=== PATIENT | male | born 1960 | race Caucasian/White ===

== ENCOUNTER 2024-04-22 13:36 | Outpatient (CLI) | payer BC, SELFPAY ==
--- NOTE | 2024-04-22 13:43 | MR_ITS ---
WS: [id number] MRI CERVICAL SPINE NONCONTRAST TECHNIQUE: Sagittal T1, T2 and STIR imaging. Axial T2, gradient, and fiesta imaging. CLINICAL INFORMATION: CERVICAL RADICULOPATHY COMPARISON: None. FINDINGS: Straightening of the normal cervical lordosis. Disc osteophyte complexes worse at C5-C6 and C6-7 with mild central canal stenosis. Cord signal is normal. Small disc protrusions in the upper thoracic spi ne at T1-T3. C2-C3: Mild facet arthropathy. C3-C4: Moderate facet arthropathy. C4-C5: Disc osteophyte complex with endplate ridging. Moderate LEFT and mild RIGHT bony foraminal dianne rowing. Moderate facet arthropathy. C5-C6: Disc osteophyte complex with uncovertebral joint hypertrophy. Severe LEFT and moderate RIGHT b joslyn foraminal narrowing. Moderate facet arthropathy. Mild central canal stenosis. C6-C7: Disc osteophyte complex with mild central canal stenosis. Uncovertebral joint hypertrophy. Mod erate to severe bilateral bony foraminal narrowing. C7-T1: Moderate LEFT bony foraminal narrowing. Spinal canal and RIGHT foramen are patent. Visualized brain stem structures: Normal. Prevertebral soft tissues: Normal. MR/MR cervical spin wo con* [id number] IMPRESSION: 1. Straightening of the normal cervical lordosis. 2. Moderate to severe bony foraminal narrowing worse at LEFT C4-5, bilateral C 5-6 worse on the LEFT, bilateral C6-7, and moderate LEFT C7-T1. 3. Disc osteophyte complexes worse at C5-C6 and C6-C7 with mild central canal stenosis.
== END 2024-04-22 13:37 | disposition home or self-care (01) ==
PROVIDERS: PCP Family Medicine; Visit Provider Nurse Practitioner Adult Health
DX: M54.12 Radiculopathy, cervical region (principal); M99.61 Osseous and subluxation stenosis of intervertebral foramina of cervical region; M25.78 Osteophyte, vertebrae; M50.321 Other cervical disc degeneration at C4-C5 level; M50.322 Other cervical disc degeneration at C5-C6 level; M50.323 Other cervical disc degeneration at C6-C7 level
CPT/HCPCS: 72141

== ENCOUNTER 2024-11-25 13:15 | Outpatient (CLI) | payer BC, SELFPAY ==
--- NOTE | 2024-11-25 13:18 | MR_ITS ---
WS: [id number] MRI THORACIC SPINE noncontrast HISTORY: S/P CERVICAL SPINAL FUSION COMPARISON: None available. TECHNIQUE: Multiplanar sequences are performed in sagittal and axial planes. Prior cervical fusion extends anteriorly from C5-T1. Mild anterior wedging of T1. No marrow edema within the thoracic spine. There is a small Schmorl's nodes defects at several levels. Signal within the cord is normal. Mass posterior and external to the thoracic cord at T5-6 level is identified extending over a length of 3.0 cm. Elliptical shaped mass with contact on the posterior thoracic cord but no edema. Transverse diameter of 1.2 cm extends slightly greater to the LEFT towards the foramen. On the axial imaging there is mass effect and anterior displacement of the thoracic cord. No remodeling of the adjacent osseous structures. No widening of the neural foramen. T1-2: Normal. T2-3: Normal. T3-4: Normal. T4-5: Normal. T5-6: Mild foraminal narrowing and central canal stenosis secondary to the intradural, extra medullary tumor. T6-7: Normal. T7-8: Shallow LEFT paracentral disc protrusion. T8-9: Small foraminal osteophytes. T9-10: Bilateral facet arthritis. T10-11: Bilateral facet arthritis and LEFT foraminal narrowing. T11-12: Normal. There is mild ectasia of the descending thoracic aorta. These images are not obtained specifically to evaluate the aorta but the ascending aorta appears to be slightly dilated and ectatic. Pulmonary artery size appears normal. No effusions. MR/MR thoracic spin wo con* [id number] IMPRESSION: 1. 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 So ft tissue mass is centered at T5-6 extending over a length of 3.0 cm and transv ersely by 1.2 cm. Suspect schwannoma, meningioma or metastatic disease. Recomme nd follow-up thoracic spine MRI with contrast at this time. 2. No cord edema or high-grade stenosis. There is mild central and foraminal s tenosis at T5-6.
== END 2024-11-25 13:16 | disposition home or self-care (01) ==
LOC: RAD 13:15
PROVIDERS: PCP Family Medicine; Visit Provider Orthopaedic Surgery Orthopaedic Surgery of the Spine
DX: Z98.1 Arthrodesis status (principal); D43.4 Neoplasm of uncertain behavior of spinal cord; M79.89 Other specified soft tissue disorders; M48.04 Spinal stenosis, thoracic region; M48.54XA Collapsed vertebra, not elsewhere classified, thoracic region, initial encounter for fracture; R93.7 Abnormal findings on diagnostic imaging of other parts of musculoskeletal system; M25.78 Osteophyte, vertebrae; M47.894 Other spondylosis, thoracic region; I77.810 Thoracic aortic ectasia
CPT/HCPCS: 72146

== ENCOUNTER 2024-12-04 14:11 | Outpatient (CLI) | payer BC, SELFPAY ==
--- NOTE | 2024-12-04 14:20 | MRR_ITS ---
PROCEDURE INFORMATION: Exam: MR Thoracic Spine Without and With Contrast Exam date and time: 12/04/2024 3:16 PM Age: 64 years old Clinical indication: Mass, lump or swelling; Prior surgery; Surgery date: 6+ months; Surgery type: Colon, c-fusion, lumbar discectomy, hernia, uro lift; Mid back pain across back. Prior surg cervical fusion c5 to t1. Surg. 05/06/24. Pain in mid back was there prior to surg and still consistent/ mri t-spine wo done on 11-25-24; Mass was seen at t5-t6; Additional info: Thoracic spine pain/soft tissue mass TECHNIQUE: Imaging protocol: Magnetic resonance imaging of the thoracic spine without and with contrast. Contrast material: MULTIHANCE; Contrast volume: 20 ml; Contrast route: INTRAVENOUS (IV); COMPARISON: MR thoracic spin wo con* [id number] 11/25/2024 1:34 PM FINDINGS: Bones/joints: There is an oval extramedullary, intradural mass involving the thoracic spinal canal posteriorly. The mass lies posterior to the thoracic cord from the T5 level to the T6 level and measures 3 cm in length and 1.2 cm in diameter. The mass causes very mild cord compression but there is no evidence of cord edema. The mass demonstrates very high-signal on T2 images and enhances avidly with contrast. Spinal cord: See Bones/joints finding. T1-T2: No significant disc bulge or herniation. No severe spinal canal stenosis. No significant neural foraminal narrowing. T2-T3: No significant disc bulge or herniation. No severe spinal canal stenosis. No significant neural foraminal narrowing. T3-T4: No significant disc bulge or herniation. No severe spinal canal stenosis. No significant neural foraminal narrowing. T4-T5: No significant disc bulge or herniation. No severe spinal canal stenosis. No significant neural foraminal narrowing. T5-T6: See above. T6-T7: No significant disc bulge or herniation. No severe spinal canal stenosis. No significant neural foraminal narrowing. T7-T8: No significant disc bulge or herniation. No severe spinal canal stenosis. No significant neural foraminal narrowing. T8-T9: No significant disc bulge or herniation. No severe spinal canal stenosis. No significant neural foraminal narrowing. T9-T10: No significant disc bulge or herniation. No severe spinal canal stenosis. No significant neural foraminal narrowing. T10-T11: No significant disc bulge or herniation. No severe spinal canal stenosis. No significant neural foraminal narrowing. T11-T12: No significant disc bulge or herniation. No severe spinal canal stenosis. No significant neural foraminal narrowing. T12-L1: No significant disc bulge or herniation. No severe spinal canal stenosis. No significant neural foraminal narrowing. Soft tissues: Unremarkable. MR/MR thoracic spine wo/w [id number] IMPRESSION: Soft tissue mass involving the spinal canal at the T5-6 level as detailed above. Primary considerations would include schwannoma, atypical meningioma. A remote consideration would include a metastatic lesion.
[2024-12-04] MEDS: gadobenate dimeglumine 20 mL vial IV (15:54)
== END 2024-12-04 14:12 | disposition home or self-care (01) ==
PROVIDERS: PCP Family Medicine; Visit Provider Orthopaedic Surgery Orthopaedic Surgery of the Spine
DX: M54.6 Pain in thoracic spine (principal); R22.2 Localized swelling, mass and lump, trunk
CPT/HCPCS: 72157

== ENCOUNTER 2025-01-06 05:00 | Outpatient (RCR) | payer BC, OTHER, SELFPAY | END 2025-02-05 23:59 | disposition home or self-care (01) | LOC: MPT 05:00 | PROVIDERS: PCP Family Medicine; Visit Provider Orthopaedic Surgery Orthopaedic Surgery of the Spine | DX: Z98.1 Arthrodesis status (principal) | CPT/HCPCS: 97110; 97140; 97162 ==

== ENCOUNTER 2025-02-06 05:00 | Outpatient (RCR) | payer BC, OTHER, SELFPAY | END 2025-03-08 23:59 | disposition home or self-care (01) | LOC: MPT 05:00 | PROVIDERS: PCP Family Medicine; Visit Provider Orthopaedic Surgery Orthopaedic Surgery of the Spine | DX: Z98.1 Arthrodesis status (principal) | CPT/HCPCS: 97110; 97140; 97530 ==

== ENCOUNTER 2025-03-09 05:00 | Outpatient (RCR) | payer OTHER, SELFPAY | END 2025-04-07 23:59 | disposition home or self-care (01) | LOC: MPT 05:00 | PROVIDERS: PCP Family Medicine; Visit Provider Orthopaedic Surgery Orthopaedic Surgery of the Spine | DX: Z98.1 Arthrodesis status (principal) | CPT/HCPCS: 97110; 97140 ==

== ENCOUNTER 2025-03-13 13:12 | Outpatient (CLI) | payer BC, OTHER, SELFPAY ==
--- NOTE | 2025-03-13 13:22 | MRR_ITS ---
PROCEDURE INFORMATION: Exam: MR Thoracic Spine Without and With Contrast Exam date and time: 03/13/2025 2:38 PM Age: 64 years old Clinical indication: Pain in thoracic spine; Prior surgery; Surgery date: 6+ months; Surgery type: Prior surg cervical fusion c5 to t1. Surg. 05/06/24, lumbar discectomy, hernia, uro lift; Prior surg cervical fusion c5 to t1. Surg. 05/06/24. T2 to t7 fusion hematoma- surgically removed. Follow up on hematoma today; Additional info: Evaluate for recurrence of hemagioma/sp spinal fusion TECHNIQUE: Imaging protocol: Magnetic resonance imaging of the thoracic spine without and with contrast. Contrast material: MULTIHANCE; Contrast volume: 20 ml; Contrast route: INTRAVENOUS (IV); COMPARISON: MR thoracic spine wo/w [id number] 12/04/2024 3:16 PM FINDINGS: Bones/joints: Normal alignment and curvature. Status post posterior fusion T3 through T6 with screws and rods. Dorsal decompression noted at the same level. Previously noted mass in the spinal canal at T5-6 has been resected. No large disc bulges or herniations. No severe spinal stenosis or foraminal narrowing. No extradural fluid collections. Spinal cord: Normal spinal cord. T1-T2: No significant disc bulge or herniation. No severe spinal canal stenosis. No significant neural foraminal narrowing. T2-T3: No significant disc bulge or herniation. No severe spinal canal stenosis. No significant neural foraminal narrowing. T3-T4: No significant disc bulge or herniation. No severe spinal canal stenosis. No significant neural foraminal narrowing. T4-T5: No significant disc bulge or herniation. No severe spinal canal stenosis. No significant neural foraminal narrowing. T5-T6: See Bones/joints finding. T6-T7: No significant disc bulge or herniation. No severe spinal canal stenosis. No significant neural foraminal narrowing. T7-T8: No significant disc bulge or herniation. No severe spinal canal stenosis. No significant neural foraminal narrowing. T8-T9: No significant disc bulge or herniation. No severe spinal canal stenosis. No significant neural foraminal narrowing. T9-T10: No significant disc bulge or herniation. No severe spinal canal stenosis. No significant neural foraminal narrowing. T10-T11: No significant disc bulge or herniation. No severe spinal canal stenosis. No significant neural foraminal narrowing. T11-T12: No significant disc bulge or herniation. No severe spinal canal stenosis. No significant neural foraminal narrowing. T12-L1: No significant disc bulge or herniation. No severe spinal canal stenosis. No significant neural foraminal narrowing. Soft tissues: Unremarkable. MR/MR thoracic spine wo/w [id number] IMPRESSION: 1. Status post posterior fusion and dorsal decompression plus tumor removal in the upper thoracic spine. 2. No acute findings.
[2025-03-13] MEDS: gadobenate dimeglumine 20 mL vial IV (15:04)
== END 2025-03-13 13:13 | disposition home or self-care (01) ==
LOC: RAD 13:14
PROVIDERS: PCP Family Medicine; Visit Provider Orthopaedic Surgery Orthopaedic Surgery of the Spine
DX: Z98.1 Arthrodesis status (principal); D18.09 Hemangioma of other sites; M48.54XA Collapsed vertebra, not elsewhere classified, thoracic region, initial encounter for fracture
CPT/HCPCS: 72157

== ENCOUNTER 2025-04-30 07:51 | Outpatient (RCR) | payer OTHER, SELFPAY | END 2025-04-30 10:47 | disposition home or self-care (01) | LOC: MPT 07:51 | PROVIDERS: PCP Family Medicine; Visit Provider Orthopaedic Surgery Orthopaedic Surgery of the Spine | DX: Z98.1 Arthrodesis status (principal) | CPT/HCPCS: 97110; 97140; 97530 ==

== ENCOUNTER 2025-07-03 14:28 | Outpatient (CLI) | payer SELFPAY ==
--- NOTE | 2025-07-03 14:34 | MR_ITS ---
WS: [email or web address] MRI THORACIC SPINE WITHOUT CONTRAST TECHNIQUE: Sagittal T1, T2 and STIR imaging. Axial T2 imaging. Noncontrast imaging obtained. CLINICAL INFORMATION: THORACIC STENOSIS , PRIOR SURGERY COMPARISON: MRI 03/13/2025 FINDINGS: Mild thoracic curve. Mild thoracic kyphosis. Pedicle screw fixation from T4-T7 with decompressive laminectomies and prior tumor resection. Susceptibility artifact from hardware degrades some images. No evidence of recurrent mass or neoplasm.Cord signal appears normal. T1-T2: Small LEFT proximal foraminal protrusion with mild to moderate LEFT foraminal narrowing T2-T3: Narrowing of the RIGHT subarticular recess. Moderate RIGHT greater than LEFT foraminal narrowing. Mild facet arthropathy. T3-T4: Mild bilateral bony foraminal narrowing. Mild facet arthropathy. T4-T5: Pedicle screw fixation. Spinal canal and foramen are patent. T5-T6: Pedicle screw fixation. Laminectomy defects. Spinal canal is patent. Foramen appear patent. T6-T7: Pedicle screw fixation. Spinal canal and foramen are patent. Laminectomy defects. T7-T8: Mild facet arthropathy. Pedicle screw fixation. Mild LEFT foraminal narrowing. RIGHT foramen is patent. T8-T9: Mild facet arthropathy. Small LEFT foraminal protrusion with mild LEFT foraminal narrowing. RIGHT foramen is patent. T9-T10: Moderate facet arthropathy. Mild LEFT and no significant RIGHT foraminal narrowing. T10-T11: Mild disc bulging. Moderate facet arthropathy. Moderate LEFT foraminal narrowing. T11-T12: Mild disc bulging. Moderate facet arthropathy. RIGHT foraminal protrusion with moderate RIGHT foraminal narrowing. LEFT foramen is patent. T12-L1: RIGHT subarticular protrusion. Narrowing of the RIGHT subarticular recess. Moderate facet arthropathy. Mild RIGHT and no significant LEFT foraminal narrowing Normal caliber descending thoracic aorta. Adrenal glands are normal. Small esophageal hiatal hernia. Partially visualized hepatic cyst measuring 13 mm. IMPRESSION 1. Prior postoperative changes pedicle screw fixation T4-T7 with laminectomy defects. No evidence of recurrent tumor. 2. No other remarkable change compared to previous. 3. Cord signal is normal.
--- NOTE | 2025-07-03 14:37 | MR_ITS ---
WS: [email or web address] MRI CERVICAL SPINE NONCONTRAST TECHNIQUE: Sagittal T1, T2 and STIR imaging. Axial T2, gradient, and fiesta imaging. CLINICAL INFORMATION: CERVICAL STENOSIS COMPARISON: MRI 04/22/2024 FINDINGS: Normal cervical alignment. ACDF C5-T1 is new compared to previous C2-C3: Mild facet arthropathy. Mild LEFT bony foraminal narrowing. Spinal canal is patent. C3-C4: Mild annular bulging. Mild central canal stenosis. Moderate facet arthropathy. Mild LEFT greater than RIGHT bony foraminal narrowing. C4-C5: Mild disc bulging with endplate ridging. Mild central canal stenosis. Moderate bilateral bony foraminal narrowing. Moderate facet arthropathy with uncovertebral joint hypertrophy. C5-C6: Postoperative changes ACDF. Spinal canal is patent. Severe LEFT greater than RIGHT bony foraminal narrowing. C6-C7: Postoperative changes ACDF. Severe LEFT greater than RIGHT bony foraminal narrowing. Mild residual central canal stenosis. C7-T1: Postoperative changes ACDF. Moderate LEFT and mild RIGHT bony foraminal narrowing. Spinal canal is patent. T1-T2: Postoperative changes ACDF T1. Small LEFT subarticular protrusion with moderate LEFT proximal foraminal narrowing. This is similar to previous. Visualized brain stem structures: Normal. Prevertebral soft tissues: Normal. MR/MR cervical spin wo con* [id number] IMPRESSION: 1. Postoperative changes ACDF C5-T1 is new compared to previous. 2. Mild residual central canal stenosis C4-C5 C5-C6 and C6-C7. 3. Multilevel moderate to severe bony foraminal narrowing worse at bilateral C 4-5, bilateral C5-6, bilateral C6-7, and moderate LEFT C7-T1.
== END 2025-07-03 14:29 | disposition home or self-care (01) ==
LOC: RAD 14:30
PROVIDERS: PCP Family Medicine; Visit Provider Orthopaedic Surgery Orthopaedic Surgery of the Spine
DX: M48.04 Spinal stenosis, thoracic region (principal); M48.02 Spinal stenosis, cervical region; M48.05 Spinal stenosis, thoracolumbar region; M47.814 Spondylosis without myelopathy or radiculopathy, thoracic region; M47.815 Spondylosis without myelopathy or radiculopathy, thoracolumbar region; M51.34 Other intervertebral disc degeneration, thoracic region; K44.9 Diaphragmatic hernia without obstruction or gangrene; K76.89 Other specified diseases of liver; M48.03 Spinal stenosis, cervicothoracic region; M47.812 Spondylosis without myelopathy or radiculopathy, cervical region; M50.321 Other cervical disc degeneration at C4-C5 level; M50.31 Other cervical disc degeneration, high cervical region
CPT/HCPCS: 72141; 72146